=== PATIENT | male | born 1960 | race Caucasian/White ===

== ENCOUNTER 2020-10-16 15:21 | Emergency (ER) | payer OTHER ==
[2020-10-16 16:08] LABS: BILIRUBIN,URINE NEGATIVE (NEGATIVE); GLUCOSE, URINE (UA) NEGATIVE (NEGATIVE); KETONES,URINE (UA) 15 mg/dL (NEGATIVE); LEUKOCYTE ESTERASE, URINE NEGATIVE (NEGATIVE); NITRITE,URINE NEGATIVE (NEGATIVE); OCCULT BLOOD,URINE LARGE (NEGATIVE); PROTEIN,URINE NEGATIVE (NEGATIVE); UROBILINOGEN,URINE 0.2 (NORMAL) E.U./dL (NORMAL)
[2020-10-16 16:09] LABS: CLARITY,URINE SL. CLOUDY (CLEAR)
[2020-10-16 16:10] LABS: RBC,URINE TNTC /HPF (0-5); WBC,URINE 0-3 /HPF (0-3)
[2020-10-16 16:11] LABS: BACTERIA,URINE Rare /HPF (None Seen); MUCUS,URINE Few Strands; SQUAMOUS EPITHELIAL CELL,UR FEW Squamous (<= Few)
[2020-10-16 16:13] LABS: BASOPHILS % (AUTO) 0.3 %; EOSINOPHILS % (AUTO) 0.1 %; HCT - HEMATOCRIT 49.5 % (42.0-52.0); HGB - HEMOGLOBIN 17.4 g/dL (14.0-18.0); LYMPHOCYTES # (AUTO) 0.8 10^3/uL (1.5-3.5); LYMPHOCYTES % (AUTO) 6.3 %; MEAN CORPUSCULAR HEMOGLOBIN 32.6 pg (27.0-31.0); MEAN CORPUSCULAR HGB CONC 35.2 g/dL (32.0-36.0); MEAN CORPUSCULAR VOLUME 92.9 fL (80.0-94.0); MEAN PLATELET VOLUME 9.1 fL (7.4-11.4); MONOCYTES # (AUTO) 0.8 10^3/uL (0.0-1.0); MONOCYTES % (AUTO) 6.3 %; NEUTROPHILS # (AUTO) 11.4 10^3/uL (1.5-6.6); NEUTROPHILS % (AUTO) 86.6 %; PLT - PLATELET COUNT 265 10^3/uL (130-450); RED BLOOD COUNT 5.33 10^6/uL (4.70-6.10); RED CELL DISTRIBUTION WIDTH 12.3 % (12.0-15.0); WHITE BLOOD COUNT 13.1 x10^3/uL (4.8-10.8)
[2020-10-16 16:21] LABS: ALBUMIN 5.3 g/dL (3.2-5.5); ALBUMIN/GLOBULIN RATIO 1.8 (1.0-2.2); BILIRUBIN,TOTAL 1.4 mg/dL (0.2-1.0); CALCIUM 9.5 mg/dL (8.5-10.3); CREATININE 1.1 mg/dL (0.6-1.2); TOTAL PROTEIN 8.2 g/dL (6.7-8.2)
[2020-10-16] MEDS ORDERED: SODIUM CHLORIDE 0.9% 1,000 ML IV STA (17:16)
[2020-10-16] MEDS ORDERED: HYDROmorphone 1 MG/ML CARPUJECT IVP STA (17:16)
[2020-10-16] MEDS ORDERED: ONDANSETRON 4 MG/2 ML VIAL IVP STA (17:24)
--- NOTE | 2020-10-16 17:24 | ED Physician Documentation ---
History of Present Illness - Stated complaint Stated Complaint: N/V/D/F - Chief complaint Chief Complaint: Abd Pain - Additonal information Additional information: 60-year-old male presents emergency department for evaluation of acute onset left flank pain with associated nausea and vomiting. Pain began about 7 hours prior to arrival. It is accompanied by some feelings of bladder fullness and difficulty fully emptying the bladder though no dysuria. He states that after peeing the pain does feel better for a brief period of time. He does have a remote history of a kidney stone about 25 years ago. No pertinent past surgical history. Is currently taking no prescribed medications. Review of Systems Constitutional: denies: Fever, Chills Eyes: reports: Reviewed and negative Nose: reports: Reviewed and negative Throat: reports: Reviewed and negative Cardiac: reports: Reviewed and negative Respiratory: reports: Reviewed and negative GI: reports: Abdominal Pain, Nausea, Vomiting : reports: Unable to Void. denies: Dysuria, Frequency, Hesitancy Skin: denies: Rash, Lesions Musculoskeletal: reports: Reviewed and negative PD PAST MEDICAL HISTORY - Past Medical History Cardiovascular: None Respiratory: None Endocrine/Autoimmune: None GI: None : None HEENT: None Psych: None Musculoskeletal: Other - Past Surgical History Ortho: Other - Present Medications Home Medications: Ambulatory Orders Medication Instructions Recorded Confirmed HYDROcod/ACETAM 5/325 [[place] 5/325] 1 tablet PO BID PRN #10 tablet 10/16/20 Tamsulosin [Flomax] 0.4 mg PO DAILY #30 cap 10/16/20 - Allergies Allergies/Adverse Reactions: Allergies Allergy/AdvReac Type Severity Reaction Status Date / Time No Known Drug Allergies Allergy Verified 10/16/20 15:31 PD ED PE EXPANDED - General General: Alert, No acute distress - Cardiac Cardiac: Regular Rate, Radial strong equal, Cap refill < 2 sec. No: Murmur Present - Respiratory Respiratory: Clear to ausultation gayle. No: Distress, Labored - Abdomen Abdomen: Normal Bowel sounds, Tender to palpation (Tenderness to the left flank without guarding or rebound. No CVA tenderness. Negative McBurney's negative Duarte's.) - Back Back: Normal exam. No: Vertebral tenderness, Soft tissue tenderness - Neuro Neuro: Alert and Oriented X 3, CNII-XII intact - GCS Eye Opening: Spontaneous Motor: Obeys Commands Verbal: Oriented Total: 15 Results - Vitals Vitals: Vital Signs - 24 hr 10/16/20 10/16/20 10/16/20 15:32 17:20 19:58 Temperature 36 C L 98.9 C H Heart Rate 48 L 75 67 Respiratory 18 15 15 Rate Blood Pressure 188/101 H 186/95 H 167/96 H O2 Saturation 98 95 98 Oxygen O2 Source Room air - Labs Labs: Laboratory Tests 10/16/20 10/16/20 10/16/20 15:55 15:59 15:59 WBC 13.1 H RBC 5.33 Hgb 17.4 Hct 49.5 MCV 92.9 MCH 32.6 H MCHC 35.2 RDW 12.3 Plt Count 265 MPV 9.1 Neut # (Auto) 11.4 H Lymph # (Auto) 0.8 L [place] # (Auto) 0.8 Eos # (Auto) 0.0 Baso # (Auto) 0.0 Absolute Nucleated RBC 0.00 Nucleated RBC % 0.0 Sodium 138 Potassium 4.0 Chloride 99 L Carbon Dioxide 26 Anion Gap 13.0 BUN 18 Creatinine 1.1 Estimated GFR (MDRD) 69 L Glucose 145 H Calcium 9.5 Total Bilirubin 1.4 H AST 28 ALT 28 Alkaline Phosphatase 67 Total Protein 8.2 Albumin 5.3 Globulin 2.9 Albumin/Globulin Ratio 1.8 Lipase 26 Urine Color YELLOW Urine Clarity SL. CLOUDY Urine pH 6.0 Ur Specific [place] 1.025 Urine Protein NEGATIVE Urine Glucose (UA) NEGATIVE Urine Ketones 15 H Urine Occult Blood LARGE H Urine Nitrite NEGATIVE Urine Bilirubin NEGATIVE Urine Urobilinogen 0.2 (NORMAL) Ur Leukocyte Esterase NEGATIVE Urine RBC TNTC H Urine WBC 0-3 Ur Squamous Epith Cells FEW Squamous Urine Bacteria Rare Urine Mucus Few Strands Ur Microscopic Review INDICATED Urine Culture Comments NOT INDICATED - Rads (name of study) CT abd Radiology: Final report received (obstructing calculus at left UVJ measuring at 0.3. mild left hydro. more fluid typically seen surrounding the kidney, this raises the possibility of forniceal rupture. additional nonobstructing calculus right kidney. Diverticulosis; small hiatial hernia) PD MEDICAL DECISION MAKING - ED course Complexity details: reviewed results, considered differential, d/w patient, d/w solar energy consultant and designer (Brooklyn Zavala) ED course: 60-year-old male presents the emergency department with acute onset left flank pain that began this afternoon. Remote history of right-sided kidney stones many years ago. Screening labs show mild leukocytosis of 13,000. Positive hematuria but no secondary findings to suggest acute cystitis. Renal function is preserved. A CT of the abdomen does show an obstructing calculus at the left UVJ measuring about 3 mm. There is mild left hydroureter nephrosis. There was concern for possible forniceal rupture seen on the CT scan. I did briefly discuss this with Dr. Zavaal the urologist at [facility]. She did not feel it warranted further emergent urological evaluation. She would like to see him in office. Patient will be started on Flomax recommend ibuprofen as well as a limited amount of hydrocodone. Emergent worrisome return precautions discussed. Departure - Departure Disposition: 01 Home, Self Care Clinical Impression: Calculus of ureterovesical junction (UVJ), Hydronephrosis of left kidney Condition: Stable Record reviewed to determine appropriate education?: Yes Follow-Up: Cherie Ocampo MD [Physician No Access] - Prescriptions: Tamsulosin [Flomax] 0.4 mg PO DAILY #30 cap HYDROcod/ACETAM 5/325 [[place] 5/325] 1 tablet PO BID PRN #10 tablet PRN Reason: Pain Comments: Heath you were seen in the emergency department today for left-sided abdominal pain. The CT scan shows that you do have a 3 mm calculus at your left UVJ. This is causing a little bit of swelling in the kidney. There is also possibility raised on the CAT scan that you do have what is called a forniceal rupture. This was discussed with the on-call urologist Dr. Zavala at [facility] and she does not feel that it needs emergent evaluation. She would like to see you in office in the next few weeks. Please fill the prescription for the Flomax that has been sent to your pharmacy. This should be taken once a day. Be careful taking it can cause some dizziness but it may help you pass the stone. 600 mg of ibuprofen is typically prescribed for ureter colic. For severe pain you can fill the prescription for the hydrocodone. If at any point you feel that your symptoms are worsening, you develop fevers, have uncontrolled flank pain, uncontrolled vomiting then please return immediately to the ER for a second evaluation. I am prescribing a short course of narcotic pain medication for you. These are potentially dangerous and addictive medications that should be used carefully. These medications may constipate you. Take an [id number] stool softener (docusate) twice daily with plenty of water while taking these medications. If you go 24 hours without a bowel movement, take [id number] miralax, per package instructions. Do not drink or drive while taking these medications. If you received narcotic or sedating medications while in the emergency department, do not drive for 24 hours. Store this medication in a safe, secure place and out of reach of children. It is a violation of federal law to give or sell this medication to another person or to use in a manner other than prescribed. The ED will not refill narcotic prescriptions, including prescriptions lost or stolen. To dispose of unwanted medications: 1. [facility] at [address] in [place] has a medication drop box. They accept prescription medications (in pill form) Thursday through Thursday 9:00 a.m. to 5:00 p.m. 2. The [employer] [place] [employer] [facility] accepts prescription medications (in pill form only) for disposal year round. Call for more information. 3. Contact the [facility] for the next [facility] sponsored prescription drug collection event. , [phone], or [phone]; Note that many narcotic pain relievers also contain Tylenol/acetaminophen. Please ensure that your total dose of acetaminophen from all sources does not exceed 3 g (3000 mg) per day.
[2020-10-16] MEDS ORDERED: IOPAMIDOL-300 100 ML VIAL ONE (18:23)
--- NOTE | 2020-10-16 19:51 | CT Report ---
PROCEDURE: Abdomen/Pelvis W INDICATIONS: hematuria and lower abdomianl pain CONTRAST: IV CONTRAST: Isovue 300 ml: 100 PO CONTRAST: *NO PO CONTRAST TECHNIQUE: After the administration of intravenous contrast, 5 mm thick sections acquired from the diaphragms to the symphysis. 5 mm thick coronal and sagittal reformats were acquired. For radiation dose reducti on, the following was used: automated exposure control, adjustment of mA and/or kV according to chichi ent size. COMPARISON: None. FINDINGS: Image quality: Excellent. ABDOMEN: Lung bases: Lung bases are clear. Heart size is normal. Small hiatal hernia. Solid organs: Liver and spleen are normal in size and enhancement. Gallbladder is unremarkable. Bi liary system is non dilated. Pancreas enhances normally. No adrenal nodules. There is a obstructing calculus at the left UVJ measuring 0.3 cm, (). There is mild hydroureteron ephrosis. There is stranding surrounding the left kidney. Right kidney simple appearing cyst. Small n onobstructing right kidney calculus measuring 0.4 cm. No hydronephrosis on the right. Peritoneum and bowel: Bowel loops demonstrate normal wall thickness and caliber. No free fluid or a ir. Normal appendix. Diverticulosis. Nodes and vessels: No retroperitoneal or mesenteric adenopathy by size criteria. Aorta and inferior vena cava are normal in size. Miscellaneous: No ventral hernias. PELVIS: Genitourinary: Bladder is mostly decompressed. No intraluminal bladder stone is seen. Miscellaneous: No inguinal hernias or adenopathy. Bones: No suspicious bony lesions. No vertebral body compression fractures. IMPRESSION: 1. Obstructing calculus at the left UVJ measuring 0.3 cm. Mild left hydroureteronephrosis. More than typically seen fluid surrounding the left kidney. This raises the possibility of forniceal rupture. 2. Additional nonobstructing calculus in the right kidney. 3. Diverticulosis. 4. Small hiatal hernia. Reviewed by: Antonio Clark MD on 10/16/2020 7:50 PM PDT Approved by: Antonio Clark MD on 10/16/2020 7:50 PM PDT Station ID: [id number]
[2020-10-16 20:00] VITALS: BP 167/96
[2020-10-16] MEDS ORDERED: TAMSULOSIN 0.4 MG CAPSULE PO STA (20:17)
[2020-10-16] MEDS ORDERED: IOPAMIDOL-300 100 ML VIAL IVP ONE (21:00)
== END 2020-10-16 20:32 | disposition home or self-care (01) ==
LOC: ED 15:21
DX: N13.2 Hydronephrosis with renal and ureteral calculous obstruction (principal)
CPT/HCPCS: 36415; 74177; 80053; 81001; 83690; 85025; 96361; 96374; 96375; 99283; 99284; A9270; J1170; Q9967; 81003; 87086